=== PATIENT | female | born 2000 | race Caucasian/White ===

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

== ENCOUNTER 2023-09-24 16:04 | Inpatient (IN) ==
[2023-09-24] MEDS ORDERED: OXYTOCIN 30 UNITS/500 ML BAG IV PRN ×2 (17:01→17:03)
[2023-09-24] MEDS ORDERED: LIDOCAINE 1% LOCAL 20 ML VIAL INFIL PRN (17:01)
--- NOTE | 2023-09-24 17:07 | History & Physical Report ---
Date of Service September 24, 2023 Assessment & Plan (1) : Plan: Admit in labor History of Present Illness Chief Complaint: onset of labor at 40 weeks Primary Care Provider: Berhane Chatman DO 23 F P0010 at 40 weeks with onset of labor this AM and now getting stronger. GBS is negative. Allergies Allergy/AdvReac Type Severity Reaction Status Date / Time No Known Allergies Allergy Verified 09/24/23 16:42 Home Medications Medication Instructions Recorded Confirmed Type No Known Home Medications 07/20/20 07/20/20 History Patient History Social History Smoking Status: Current every day smoker Tobacco Type: Cigarettes Second Hand Exposure: Yes; Do You Dip or Chew Tobacco: No; Tobacco Cessation Education Requested by Patient: No Hx Alcohol Use: No Hx Substance Use: No Preferred Language: Irish Communication Ability: Effective Vp Packaging Required: No Beliefs That Will Affect Care: None marital status: Single Current Living Situation: Significant Other Other Information That Helps Us Care for You: No Feels Safe at Home: Yes Safety Concerns: Feels Safe At This Time Assistive Devices: None 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 Review of Systems All systems reviewed & are unremarkable except as noted in HPI & below Physical Exam Constitutional: WD/WN, vitals as above Eyes: PERRL, conjunctivae normal, anicteric sclerae Respiratory: normal respiratory effort, lungs clear to auscultation Cardiovascular: RRR, no murmur, no edema Gastrointestinal (Abdomen): Inspection/Auscultation: abdomen normal to inspection Musculoskeletal: Extremities: extremities normal to inspection Skin: no rashes, warm and dry Neurologic: patellar DTR's 2+ bilat, sensation intact Psychiatric: A+Ox3, euthymic affect Genitourinary: no vaginal lesions, no adnexal mass OB Exam Abdomen: + fundal height and + vertex Manual OB Exam: + cervical dilation 3 cm, + cervical effacement 80% and + station -2 OB Exam Monitor Tracing: + external FHT monitor used, + external uterine monitor used, + category I and + normal FHT variability soft, mid-position Results & Data Vital Signs (Past 12 Hours) Vital Signs Temp Pulse Resp BP 09/24/23 16:15 116 H 124/72 09/24/23 16:15 37.1 C 20 Code Status & VTE Plan VTE Prophylaxis Plan VTE Prophylaxis will be ordered: No Monitoring External Monitor Cat 1
--- NOTE | 2023-09-24 17:13 | Anesthesiology Consultation ---
Date of Service September 24, 2023 Assessment & Plan Chart Review Chart Review: Patient NOT seen in Pre Admission Testing and entry level machine operator initiated Consults Requested none History Height/Weight Height: 5 ft Weight: 80.3 kg Allergies Allergy/AdvReac Type Severity Reaction Status Date / Time No Known Allergies Allergy Verified 09/24/23 16:42 Medications Home Medications Medication Instructions Recorded Confirmed Last Taken No Known Home Medications 07/20/20 07/20/20 Unknown Social History Smoking Status: Current every day smoker Do You Dip or Chew Tobacco: No Hx Alcohol Use: No Hx Substance Use: No Review of Systems ROS Unobtainable: All systems reviewed & are unremarkable except as noted in HPI & below Physical Exam Vital Signs Last Vital Signs Temp 37.1 C 09/24/23 16:15 Pulse 116 H 09/24/23 16:15 Resp 20 09/24/23 16:15 BP 124/72 09/24/23 16:15
[2023-09-24] MEDS ORDERED: fentaNYL citrate PF 100 MCG/2 ML VIAL EPI PRN (17:15)
[2023-09-24] MEDS ORDERED: ROPIVACAINE 0.5% PF 5 MG/ML 20 ML VIAL EPI PRN (17:15)
[2023-09-24] MEDS ORDERED: fentANYL 2 MCG/ML BUPIVacaine 0.125%-NSS 100ML BAG EPI PRN (17:15)
[2023-09-24] MEDS ORDERED: diphenhydrAMINE 50 MG/ML VIAL IV PRN (17:15)
[2023-09-24] MEDS ORDERED: NALOXONE HCL 0.4 MG/1 ML VIAL/CARP IV PRN (17:15)
[2023-09-24] MEDS ORDERED: NALBUPHINE HCL INJ 10 MG/ML AMP IV PRN (17:15)
[2023-09-24] MEDS ORDERED: LIDOCAINE 2%/EPINEPHRINE 1:200,000 20 ML PF EPI STA (17:15)
[2023-09-24] MEDS ORDERED: ePHEDrine sulfate 50 MG/ML AMP IV PRN (17:15)
[2023-09-24] MEDS ORDERED: LIDOCAINE 2% MPF LOCAL 5 ML VIAL EPI PRN (17:15)
[2023-09-24] MEDS ORDERED: BUPIVACAINE 0.25% PF 30 ML VIAL EPI PRN (17:15)
[2023-09-24] MEDS ORDERED: NALOXONE HCL 1 MG in SODIUM CHLORIDE 0.9% 1,000 ML IV PRN (17:15)
[2023-09-24] MEDS ORDERED: SODIUM CHLORIDE 0.9% PF INJ 10 ML VIAL EPI PRN (17:15)
[2023-09-24] MEDS ORDERED: fentaNYL citrate PF 100 MCG/2 ML VIAL EPI STA (17:15)
[2023-09-24] MEDS ORDERED: BUPIVACAINE 0.25% PF 30 ML VIAL EPI STA (17:15)
[2023-09-24] MEDS ORDERED: SODIUM CHLORIDE 0.9% PF INJ 10 ML VIAL EPI STA (17:15)
[2023-09-24] MEDS: LACTATED RINGER'S 1,000 ML IV PRN ×2 (17:44→20:30)
[2023-09-24 18:05] LABS: Hematocrit (blood only) 38.2 % (37.0-47.0); Mean Corpuscular Hemoglobin 29.7 pg (25.0-34.0); Mean Corpuscular Volume 87.2 fL (80.0-100.0); Mean Platelet Volume 10.2 fL (9.4-12.4); Platelet Count 269 K/uL (130-400); RDW Coefficient of Variation 14.3 % (11.5-14.5); RDW Standard Deviation 46.4 fL (36.4-46.3); Red Blood Count 4.38 M/uL (4.20-5.40); White Blood Count 12.32 K/ul (4.8-10.8)
[2023-09-24] MEDS ORDERED: SODIUM CHLORIDE 0.9% PF INJ 10 ML VIAL ONE (19:03)
[2023-09-24] MEDS ORDERED: fentANYL 2 MCG/ML BUPIVacaine 0.125%-NSS 100ML BAG ONE (19:03)
[2023-09-24] MEDS ORDERED: LIDOCAINE 2%/EPINEPHRINE 1:200,000 20 ML PF ONE (19:03)
[2023-09-24] MEDS ORDERED: BUPIVACAINE 0.25% PF 30 ML VIAL ONE (19:03)
[2023-09-24] MEDS ORDERED: ePHEDrine sulfate 50 MG/ML AMP ONE (19:03)
[2023-09-24] MEDS ORDERED: fentaNYL citrate PF 100 MCG/2 ML VIAL ONE (19:03)
--- NOTE | 2023-09-24 20:27 | Labor Progress Brief Note ---
Date of Service September 24, 2023 Assessment & Plan Admission and Anticipated Discharge Date Admission Date: September 24, 2023 Physical Exam Genitourinary: Manual OB Exam: + cervical dilation 5 cm, + cervical effacement 100%, + station -2 and + amniotic fluid (AROM with Amni-hook clear fluid) clear OB Exam Monitor Tracing: + external FHT monitor used, + external uterine monitor used, + category I and + normal FHT variability Results & Data Vital Signs (Past 12 Hours) Vital Signs Temp Pulse Resp BP Pulse Ox 09/24/23 19:10 37.0 C 18 09/24/23 20:23 100 H 97 09/24/23 20:24 104 H 126/75 09/24/23 20:22 105 H 122/66 09/24/23 20:20 101 H 129/62 09/24/23 20:18 97 09/24/23 20:18 101 H 09/24/23 20:18 100 H 132/61 09/24/23 20:16 179 H 108/59 L 09/24/23 20:14 94 H 141/60 H 09/24/23 20:13 92 H 97 09/24/23 20:12 106 H 131/73 09/24/23 20:10 96 H 121/65 09/24/23 20:08 87 119/59 L 98 09/24/23 20:06 92 H 154/63 H 09/24/23 20:04 90 142/71 H 09/24/23 20:03 86 97 09/24/23 19:58 105 H 99 09/24/23 19:53 96 H 99 09/24/23 19:48 90 96 09/24/23 19:10 18 09/24/23 19:10 37.0 C 18 09/24/23 19:07 88 129/71 09/24/23 18:49 91 H 121/62 09/24/23 18:45 18 09/24/23 18:45 18 09/24/23 18:30 18 09/24/23 18:30 18 09/24/23 17:47 18 09/24/23 17:47 18 09/24/23 17:48 106 H 115/70 09/24/23 16:15 116 H 124/72 09/24/23 16:15 37.1 C 20
--- NOTE | 2023-09-25 00:55 | Labor Progress Brief Note ---
Date of Service September 25, 2023 Assessment & Plan Admission and Anticipated Discharge Date Admission Date: September 24, 2023 Physical Exam Genitourinary: Manual OB Exam: + cervical dilation 10 cm, + cervical effacement 100%, + station + 2 and + amniotic fluid clear OB Exam Monitor Tracing: + external FHT monitor used, + external uterine monitor used, + category I and + normal FHT variability Results & Data Vital Signs (Past 12 Hours) Vital Signs Temp Pulse Resp BP Pulse Ox 09/24/23 19:10 37.0 C 18 09/25/23 00:52 84 124/60 09/25/23 00:48 88 L 09/25/23 00:48 130 H 09/25/23 00:48 89 86 L 09/25/23 00:43 97 H 97 09/25/23 00:38 89 98 09/25/23 00:36 80 143/72 H 09/25/23 00:33 72 95 09/25/23 00:28 79 95 09/25/23 00:23 78 95 09/25/23 00:21 78 119/58 L 09/25/23 00:15 16 09/25/23 00:15 16 09/25/23 00:18 77 94 09/25/23 00:13 79 94 09/25/23 00:08 83 95 09/25/23 00:06 83 121/55 L 09/25/23 00:03 82 94 09/24/23 23:58 81 94 09/24/23 23:53 82 94 09/24/23 23:51 83 128/62 09/24/23 23:48 83 94 09/24/23 23:43 78 95 09/24/23 23:38 76 96 09/24/23 23:37 82 121/57 L 09/24/23 23:33 79 96 09/24/23 23:28 87 96 09/24/23 23:23 83 95 09/24/23 23:21 82 116/60 09/24/23 23:15 16 09/24/23 23:15 16 09/24/23 23:18 81 95 09/24/23 23:13 83 96 09/24/23 23:08 78 95 09/24/23 23:06 73 114/64 09/24/23 23:03 76 96 09/24/23 22:58 75 96 09/24/23 22:53 76 96 09/24/23 22:51 75 118/63 09/24/23 22:48 84 97 09/24/23 22:30 37.1 C 09/24/23 22:43 79 97 09/24/23 22:15 18 09/24/23 22:15 18 09/24/23 22:38 85 97 09/24/23 22:37 78 109/62 09/24/23 22:33 86 97 09/24/23 22:28 84 97 09/24/23 22:23 96 H 97 09/24/23 22:22 86 109/69 09/24/23 22:18 87 95 09/24/23 22:13 87 95 09/24/23 22:08 84 95 09/24/23 22:06 92 H 85/50 L 09/24/23 22:03 99 H 97 09/24/23 21:58 85 95 09/24/23 21:44 18 09/24/23 21:44 18 09/24/23 21:53 89 95 09/24/23 21:51 80 103/56 L 09/24/23 21:48 91 H 98 09/24/23 21:43 98 H 96 09/24/23 21:38 79 95 09/24/23 21:36 79 113/60 09/24/23 21:33 95 09/24/23 21:33 82 09/24/23 21:33 79 94 09/24/23 21:28 82 95 09/24/23 21:23 88 95 09/24/23 21:22 83 115/63 94 09/24/23 21:18 80 96 09/24/23 21:15 18 09/24/23 21:15 18 09/24/23 21:00 18 09/24/23 21:00 18 09/24/23 21:13 79 96 09/24/23 21:12 84 111/62 09/24/23 20:45 18 09/24/23 20:45 18 09/24/23 21:08 85 98 09/24/23 21:03 100 H 98 09/24/23 20:09 18 09/24/23 20:09 18 09/24/23 20:15 18 09/24/23 20:15 18 09/24/23 20:58 86 98 09/24/23 20:53 92 H 99 09/24/23 20:50 100 H 117/70 09/24/23 20:48 97 09/24/23 20:48 99 H 09/24/23 20:48 94 H 103/57 L 09/24/23 20:46 107 H 114/63 09/24/23 20:43 95 H 98 09/24/23 20:44 92 H 110/58 L 09/24/23 20:42 87 117/64 09/24/23 20:40 114 H 116/64 09/24/23 20:38 99 H 124/63 97 09/24/23 20:36 96 H 125/64 09/24/23 20:34 92 H 124/60 09/24/23 20:33 98 H 97 09/24/23 20:32 97 H 124/63 09/24/23 20:30 36.8 C 97 H 18 126/61 09/24/23 20:28 98 09/24/23 20:28 103 H 09/24/23 20:28 97 H 126/61 09/24/23 20:26 106 H 113/91 09/24/23 20:23 100 H 97 09/24/23 20:24 104 H 126/75 09/24/23 20:22 105 H 122/66 09/24/23 20:20 101 H 129/62 09/24/23 20:18 97 09/24/23 20:18 101 H 09/24/23 20:18 100 H 132/61 09/24/23 20:16 179 H 108/59 L 09/24/23 20:14 94 H 141/60 H 09/24/23 20:13 92 H 97 09/24/23 20:12 106 H 131/73 09/24/23 20:10 96 H 121/65 09/24/23 20:08 87 119/59 L 98 09/24/23 20:06 92 H 154/63 H 09/24/23 20:04 90 142/71 H 09/24/23 20:03 86 97 09/24/23 19:58 105 H 99 09/24/23 19:53 96 H 99 09/24/23 19:48 90 96 09/24/23 19:10 18 09/24/23 19:10 37.0 C 18 09/24/23 19:07 88 129/71 09/24/23 18:49 91 H 121/62 09/24/23 18:45 18 09/24/23 18:45 18 09/24/23 18:30 18 09/24/23 18:30 18 09/24/23 17:47 18 09/24/23 17:47 18 09/24/23 17:48 106 H 115/70 09/24/23 16:15 116 H 124/72 09/24/23 16:15 37.1 C 20
--- NOTE | 2023-09-25 01:19 | Delivery Summary ---
Vaginal Delivery Summary Date of Service September 25, 2023 Vaginal Delivery Summary Live female SURJIT over intact perineum with delayed cord clamping and Apgars 8/9 weight pending. Spontaneous delivery of intact placenta. No tears. EBL 100 ml. Final sponge and instrument count are correct. Mom and baby stable.
[2023-09-25] MEDS ORDERED: ACETAMINOPHEN 325 MG TAB PO PRN (02:00)
[2023-09-25] MEDS ORDERED: DIPHTHERIA/TETANUS/PERTUSSIS Vaccine (Tdap, Age 7+yrs) 0.5mL SYR/VL IM ONE (02:00)
[2023-09-25] MEDS ORDERED: IBUPROFEN 600 MG TAB PO PRN (02:00)
[2023-09-25] MEDS ORDERED: HYDROCORTISONE ACETATE 25 MG SUPP PR PRN (02:00)
[2023-09-25] MEDS ORDERED: OXYTOCIN 30 UNITS/500 ML BAG IV PRN (02:00)
[2023-09-25] MEDS ORDERED: BENZOCAINE 20% SPRY 85 APPLN/85 GM CAN EXT PRN (02:00)
--- NOTE | 2023-09-25 08:00 | Anesthesia Procedure Note ---
Date of Service September 25, 2023 Anesthesia Post Epidural Note Vital Signs Vital Signs: Temp Pulse Resp BP Pulse Ox O2 Del Method 97.9 F 92 H 18 100/62 97 Room Air 09/25/23 03:30 09/25/23 03:30 09/25/23 03:30 09/25/23 03:30 09/25/23 03:30 09/25/23 03:30 Notes Mental Status: alert / awake / arousable and participated in evaluation Nausea / Vomiting: adequately controlled Pain: adequately controlled Airway Patency, RR, SpO2: stable & adequate BP & HR: stable & adequate Hydration State: stable & adequate Neuraxial Anesthesia: was administered and sensory block is resolving Anesthetic Complications: no major complications apparent and Pt Satisfied with anesthetic care Epidural: Removed without complications and With tip intact
[2023-09-25] MEDS: DOCUSATE SODIUM 100 MG CAP PO SCH ×2 (08:42→20:23)
[2023-09-25] MEDS: FERROUS SULFATE 325 MG TAB PO SCH (08:42)
[2023-09-25] MEDS: PRENATAL VITAMIN 1 TAB PO SCH (08:42)
[2023-09-26 06:56] LABS: Hematocrit (blood only) 35.7 % (37.0-47.0); Hemoglobin 11.6 g/dl (12.0-16.0); Mean Corpuscular Hemoglobin 29.1 pg (25.0-34.0); Mean Corpuscular Hgb Conc 32.5 g/dL (32.0-36.0); Mean Corpuscular Volume 89.5 fL (80.0-100.0); Mean Platelet Volume 10.3 fL (9.4-12.4); Platelet Count 211 K/uL (130-400); RDW Coefficient of Variation 14.6 % (11.5-14.5); RDW Standard Deviation 48.3 fL (36.4-46.3); Red Blood Count 3.99 M/uL (4.20-5.40); White Blood Count 9.86 K/ul (4.8-10.8)
[2023-09-26] MEDS: FERROUS SULFATE 325 MG TAB PO SCH (08:30)
[2023-09-26] MEDS: DOCUSATE SODIUM 100 MG CAP PO SCH (08:30)
[2023-09-26] MEDS: PRENATAL VITAMIN 1 TAB PO SCH (08:30)
--- NOTE | 2023-09-26 10:03 | Obstetrical Progress Note ---
Date of Service September 26, 2023 Subjective Ambulation: ambulating normally Voiding: no voiding problems Passing Gas:: Yes Diet Tolerance:: regular diet Lochia:: Small Feeding Type:: bottle feeding Current Pain Level(1-10): 0 doing well plans to go home today Physical Exam Constitutional WD/WN, vitals as above Gastrointestinal (Abdomen) Inspection/Auscultation: abdomen normal to inspection abdomen soft and non-tender fundus firm below U Musculoskeletal Extremities: extremities normal to inspection Skin no rashes, warm and dry Neurologic patellar DTR's 2+ bilat, sensation intact Psychiatric A+Ox3, euthymic affect Results & Data Vital Signs (Past 12 Hours) Vital Signs Temp Pulse Resp BP Pulse Ox O2 Del Method 09/26/23 08:00 36.6 C 80 18 117/71 96 Room Air 09/25/23 23:00 36.6 C 84 18 106/70 98 Room Air Laboratory Results 09/24/23 09/26/23 17:24 06:09 WBC 12.32 H 9.86 RBC 4.38 3.99 L Hgb 13.0 11.6 L Hct 38.2 35.7 L MCV 87.2 89.5 MCH 29.7 29.1 MCHC 34.0 32.5 RDW Std Deviation 46.4 H 48.3 H RDW Coeff of Guerita 14.3 14.6 H Plt Count 269 211 MPV 10.2 10.3
[2023-09-26] MEDS ORDERED: bisacodyL 5 MG TABEC PO SCH (20:00)
[2023-09-27] MEDS ORDERED: bisacodyL 10 MG SUPP PR PRN
== END 2023-09-26 10:50 | disposition home or self-care (01) | DRG 807 ==
LOC: OPB 16:04 → 4S1 16:06 → 4E2 09-25 05:11

== ENCOUNTER 2025-08-12 17:12 | Inpatient (IN) ==
[2025-08-12] MEDS ORDERED: LIDOCAINE 1% LOCAL 20 ML VIAL INFIL PRN (20:06)
[2025-08-12] MEDS ORDERED: OXYTOCIN 30 UNITS/NSS 30 UNITS/500 ML BAG IV PRN (20:06)
[2025-08-12 20:36] LABS: Hematocrit (blood only) 36.5 % (37.0-47.0); Hemoglobin 11.9 g/dl (12.0-16.0); Mean Corpuscular Hemoglobin 27.7 pg (25.0-34.0); Mean Corpuscular Volume 84.9 fL (80.0-100.0); Platelet Count 277 K/uL (130-400); RDW Standard Deviation 41.6 fL (36.4-46.3); Red Blood Count 4.30 M/uL (4.20-5.40); White Blood Count 13.83 K/ul (4.8-10.8)
[2025-08-12] MEDS: LACTATED RINGER'S 1,000 ML IV PRN (21:29)
--- NOTE | 2025-08-12 21:37 | History & Physical Report ---
Date of Service August 12, 2025 Assessment & Plan Admission and Anticipated Discharge Date Admission Date: August 12, 2025 History of Present Illness Chief Complaint: induction of labor Primary Care Provider: NO PCP 24 F [id number] at 39.4 weeks admitted for elective IOL. GBS is negative. course has been uncomplicated. Allergies Allergy/AdvReac Type Severity Reaction Status Date / Time No Known Allergies Allergy Verified 08/12/25 19:45 Patient History Medical History Anxiety Depression History of COVID-11 Sep 2023 Surgical History [place] teeth extracted Family History Grandfather (Paternal) Diabetes Social History Smoking Status: Current every day smoker Tobacco Type: Cigarettes Cigarettes Per Day: 1ppd; Second Hand Exposure: No; Do You Dip or Chew Tobacco: No; Hx Alcohol Use: No Hx Substance Use: No Preferred Language: Slovak Communication Ability: Effective Medical Claims Examiner Required: No Beliefs That Will Affect Care: None marital status: Single Current Living Situation: Significant Other Current Living Situation Comment: house with FOB and daughter Other Information That Helps Us Care for You: No Feels Safe at Home: Yes Safety Concerns: Feels Safe At This Time Assistive Devices: None 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 Review of Systems All systems reviewed & are unremarkable except as noted in HPI & below Physical Exam Constitutional: WD/WN, vitals as above Eyes: PERRL, conjunctivae normal, anicteric sclerae Respiratory: normal respiratory effort Cardiovascular: Rate/Rhythm: regular rate and regular rhythm Gastrointestinal (Abdomen): Inspection/Auscultation: abdomen normal to inspection Musculoskeletal: Extremities: extremities normal to inspection Skin: no rashes, warm and dry Neurologic: patellar DTR's 2+ bilat, sensation intact Psychiatric: A+Ox3, euthymic affect Genitourinary: no vaginal lesions, no adnexal mass Manual OB Exam: + cervical dilation 1 cm, + cervical effacement 50% and + station high OB Exam Monitor Tracing: + external FHT monitor used, + external uterine monitor used, + category I and + normal FHT variability cervix is soft anterior. EFW 7-8 lbs. Will start Oxytocin. Epidural when needed for pain control. Results & Data Vital Signs (Past 12 Hours) Vital Signs Temp Pulse Resp BP O2 Del Method 08/12/25 19:45 36.5 C 18 Room Air 08/12/25 19:43 36.5 C 93 H 18 109/67 Laboratory Results 08/12/25 20:20 WBC 13.83 H RBC 4.30 Hgb 11.9 L Hct 36.5 L MCV 84.9 MCH 27.7 MCHC 32.6 RDW Std Deviation 41.6 RDW Coeff of Guerita 13.6 Plt Count 277 MPV 10.0 Treponema pallidum Ab Negative Blood Type B Positive Antibody Screen NEGATIVE Monitoring External Monitor Cat 1
[2025-08-12] MEDS: OXYTOCIN 30 UNITS/NSS 30 UNITS/500 ML BAG IV PRN (21:45)
[2025-08-13] MEDS ORDERED: NALOXONE HCL 0.4 MG/1 ML VIAL/CARP IV PRN ×2 (00:55→12:38)
[2025-08-13] MEDS ORDERED: NALBUPHINE HCL INJ 10 MG/ML AMP IV PRN ×2 (00:55→12:38)
[2025-08-13] MEDS ORDERED: SODIUM CHLORIDE 0.9% PF INJ 10 ML VIAL EPI PRN (00:55)
[2025-08-13] MEDS ORDERED: diphenhydrAMINE 50 MG/ML VIAL IV PRN ×2 (00:55→12:38)
[2025-08-13] MEDS ORDERED: BUPIVACAINE 0.25% PF 30 ML VIAL EPI PRN (00:55)
[2025-08-13] MEDS ORDERED: ROPIVACAINE 0.5% PF 5 MG/ML 20 ML VIAL EPI PRN (00:55)
[2025-08-13] MEDS ORDERED: ONDANSETRON INJ 2 MG/ML 2 ML VIAL IV PRN (00:55)
[2025-08-13] MEDS ORDERED: NALOXONE HCL 1 MG in SODIUM CHLORIDE 0.9% 1,000 ML IV PRN ×2 (00:55→12:38)
[2025-08-13] MEDS ORDERED: LIDOCAINE 2% MPF LOCAL 5 ML VIAL EPI PRN (00:55)
--- NOTE | 2025-08-13 00:57 | Anesthesiology Consultation ---
Date of Service August 13, 2025 Assessment & Plan (1) Encounter for pre-operative examination: Chart Review Chart Review: Patient NOT seen in Pre Admission Testing and Acceptable Risk for Labor Epidural Consults Requested none History Height/Weight Height: 5 ft Weight: 82.1 kg Allergies Allergy/AdvReac Type Severity Reaction Status Date / Time No Known Allergies Allergy Verified 08/12/25 19:45 Medications Active Medications Generic Name Dose Route Start Last Admin Trade Name Freq PRN Reason Stop Dose Admin Lactated Ringer's 1,000 mls @ 125 mls/hr 08/12/25 20:06 08/13/25 01:15 Lr IV 08/14/25 20:05 999 mls/hr .Q8H PRN Administration L&D Protocol Protocol Oxytocin 30 units in 500 mls @ 5 mls/hr 08/12/25 21:33 08/12/25 23:00 Pitocin 30 Units/Nss IV 08/14/25 21:32 0.3 units/hr .Q24H PRN 5 mls/hr Labor Induction/Augmentation Titration Protocol 0.3 UNITS/HR Past Medical History Medical History Anxiety Depression History of COVID-11 Sep 2023 Exercise / Class Metabolic Activity II 4-5 Yardwork/Stairs/Walk up hill Past Family History Family History Grandfather (Paternal) Diabetes Past Surgical History Surgical History [place] teeth extracted Social History Smoking Status: Current every day smoker Smoking cigarettes per day: 1ppd Do You Dip or Chew Tobacco: No Hx Alcohol Use: No Hx Substance Use: No substance use type: does not use Physical Exam Vital Signs Last Vital Signs Temp 36.9 C 08/12/25 23:00 Pulse 73 08/13/25 01:23 Resp 18 08/13/25 00:30 BP 102/53 L 08/13/25 01:23 Pulse Ox 98 08/13/25 01:21 O2 Del Method Room Air 08/12/25 19:45 Testing Laboratory Results 08/12/25 20:20 Blood Type B Positive 08/12/25 20:20 Antibody Screen NEGATIVE 08/12/25 20:20
[2025-08-13] MEDS: BUPIVACAINE 0.25% PF 30 ML VIAL ONE (01:25)
[2025-08-13] MEDS: LIDOCAINE 2%/EPINEPHRINE 1:200,000 20 ML PF ONE (01:26)
[2025-08-13] MEDS: fentANYL 2 MCG/ML BUPIVacaine 0.125%-NSS 100ML BAG ONE (01:36)
[2025-08-13] MEDS: SODIUM CHLORIDE 0.9% PF INJ 10 ML VIAL ONE (02:02)
[2025-08-13] MEDS: BUPIVACAINE 0.25% PF 30 ML VIAL EPI STA (02:02)
[2025-08-13] MEDS: LIDOCAINE 2%/EPINEPHRINE 1:200,000 20 ML PF EPI STA (02:03)
[2025-08-13] MEDS: SODIUM CHLORIDE 0.9% PF INJ 10 ML VIAL EPI STA (02:03)
[2025-08-13] MEDS: fentANYL 2 MCG/ML BUPIVacaine 0.125%-NSS 100ML BAG EPI PRN (10:52)
[2025-08-13] MEDS ORDERED: ceFAZolin 330 MG/ML 1 GM VIAL ONE (12:30)
[2025-08-13] MEDS ORDERED: PROPOFOL IV EMULSION 10 MG/ML 20 ML VIAL IV ONE (12:30)
[2025-08-13] MEDS ORDERED: SUCCINYLCHOLINE 100MG/5ML SYR IV ONE (12:30)
[2025-08-13] MEDS ORDERED: LIDOCAINE 2%/EPINEPHRINE 1:200,000 20 ML PF ONE (12:32)
[2025-08-13] MEDS ORDERED: ONDANSETRON INJ 2 MG/ML 2 ML VIAL ONE (12:33)
[2025-08-13] MEDS ORDERED: MoRPHine SULFATE PF 1 MG/ML 10 ML AMP/VIAL ONE (12:33)
[2025-08-13] MEDS ORDERED: DROPERIDOL 5 MG/2 ML VIAL IV PRN (12:38)
[2025-08-13] MEDS ORDERED: LACTATED RINGER'S 500 ML IV PRN (12:38)
[2025-08-13] MEDS ORDERED: NALOXONE HCL 0.08 MG in SYRINGE 1.8 ML IV PRN (12:38)
[2025-08-13] MEDS ORDERED: MoRPHine SULFATE PF 1 MG/ML 10 ML AMP/VIAL EPI ONE (12:38)
[2025-08-13] MEDS ORDERED: HYDROmorphone INJ 0.5 MG/0.5 ML SYR IV PRN (12:38)
[2025-08-13] MEDS ORDERED: SODIUM CHLORIDE 0.9% 1,000 ML IV SCH (12:45)
[2025-08-13] MEDS ORDERED: DC INTRASPINAL MORPHINE SCH (12:45)
[2025-08-13] MEDS ORDERED: NO NARCOTICS OR SEDATIVES SCH (12:45)
[2025-08-13] MEDS ORDERED: BENZOCAINE 20% SPRY 85 APPLN/85 GM CAN EXT PRN (13:14)
[2025-08-13] MEDS ORDERED: MAGNESIUM HYDROXIDE SUSP 30 ML UDC PO PRN (13:14)
[2025-08-13] MEDS ORDERED: HYDROCORTISONE ACETATE 25 MG SUPP PR PRN (13:14)
[2025-08-13] MEDS ORDERED: SENNA 8.6 MG TAB PO PRN (13:14)
[2025-08-13] MEDS ORDERED: DIPHTHER/TETAN/PERTUS Vaccine (Tdap, Adol/Adult) 0.5mL IM ONE (13:14)
[2025-08-13] MEDS ORDERED: CALCIUM CARBONATE 500 MG CHEWABLE TAB PO PRN (13:14)
[2025-08-13] MEDS ORDERED: LACTATED RINGER'S 1,000 ML IV SCH (13:15)
[2025-08-13 13:21] LABS: Base Excess Cord Arterial Bld -6.7 mEq/L (-9-1.8); Base Excess Cord Venous Blood -5.6 mEq/L (-7.7-1.9); CO2 Cord Arterial Blood 56 mmHg (39.1-73.5); Cord Venous Blood PO2 35 mmHg (14.1-43.3); HCO3 Cord Arterial Blood 22 mmol/L (19.7-28.5); O2 Saturation Cord Venous Bld 70.2 % (<68); Oxygen Sat Cord Arterial Blood < 60.0 % (<60); PO2 Cord Arterial Blood < 20 mmHg (4.1-31.7); pH Cord Arterial Blood 7.20 (7.1-7.38)
--- NOTE | 2025-08-13 13:25 | Operative Report ---
Post Operative Report Pre & Post Diagnosis Operation Date: 08/13/25 12:25 Pre-Op Diagnosis: Cord Prolapse; Bradycardia Post-Op Diagnosis: Same; delivery of a live male child at 1230 I identified the patient and participated in the time-out.: Yes Procedure Operation Date: 08/13/25 12:25 Actual Procedures p Section in LD(Bilateral) - Gaston Bar MD Surgeon Gaston Bar MD Isotope Technician Dr. Barnett Estimated Blood Loss 780 (QBL) Findings Consistent with Post-Op Diagnosis Nuchal cord x 2 Specimens Placenta Drains None Complications None Indications Prolapse umbilical cord bradycardia Description of Procedure Patient was brought to the OR on an emergency basis. Nurse had her hand in the vagina keeping the head out of the pelvis. Patient was placed on the operating room table. Compression stockings were applied. Lower abdomen was just splashed with Betadine. Draped in usual sterile fashion. General anesthesia was administered. Pfannenstiel incision was made carried down to the anterior fascia by sharp dissection. Fascia was incised transversely from the underlying muscle by blunt and sharp dissection. Recti muscles were in the midline. Peritoneum was carefully raised and entered. Lower uterine segment was exposed. An incision was made above the vesicouterine fold. The bladder was advanced out of the lower uterine segment. A small incision was made in the lower uterine segment. Incision was extended laterally with a 2 fingers. Cord was noted at this time in front of the head. Operators hand was placed in uterine cavity with fundal pressure was delivered. After delivery of the head there was a nuchal cord x 2 that had to be reduced. Then the body and the was delivered without difficulty. was suctioned through the mouth and the nose. Cord was clamped and cut. Cord gases were sent. Then cord blood was taken. Placenta was removed manually. Uterus was brought out through the abdominal incision. Uterine cavity was cleansed with a clean sponge. The angles of the lower uterine defect were grasped with 4 ring forceps. Then a heavy-duty chromic was used to approximate the muscular layer with continuous interlocking suture. Following this a heavy duty suture of Vicryl was placed in a horizontal fashion to approximate the fascial layer over the approximated muscular layer around 1 additional [id number] suture of Vicryl was placed on the patient's left side below the incision. Hemostasis was now good. Pelvis was cleansed of all blood clots and debris. Uterus was reinserted into the abdominal cavity. A continuous plain suture was used to reapproximate the edges of the bladder. Careful anatomical approximation the anterior abdominal wall was performed. Peritoneum was closed with continuous suture chromic catgut. Recti muscles approximate interrupted [id number] suture of chromic catgut. Vicryl sutures approximate the fascial edges with a continuous interlocking suture of heavy Vicryl. Subcu was then washed. Subcu was approximated with a running plain. The skin edges are approximated with staple clips. assistant project manager was necessary in this emergency procedure to provide adequate exposure and safe surgery. I attest to the content of the Intraoperative Record and any orders documented therein. assistant project manager was necessary to provide adequate exposure for safe surgery for this emergency procedure.
[2025-08-13] MEDS: OXYTOCIN 20 UNITS/LR 1,002 ML IV SCH (13:30)
[2025-08-13] MEDS: KETOROLAC 30 MG/ML VIAL IV SCH (14:13)
[2025-08-13] MEDS: ONDANSETRON INJ 2 MG/ML 2 ML VIAL IV PRN (16:59)
--- NOTE | 2025-08-13 17:46 | Anesthesiology Progress Note ---
Date of Service August 13, 2025 Anesthesia Post Procedure Vital Signs Vital Signs: Temp Pulse Pulse Resp BP BP Pulse Ox 08/13/25 16:56 87 104/63 97 08/13/25 16:02 16 97 08/13/25 16:02 36.7 C 70 16 91/50 L 97 08/13/25 16:02 08/13/25 15:57 72 96 08/13/25 15:53 71 94 08/13/25 15:52 68 96 08/13/25 15:49 69 93/55 L 08/13/25 15:47 69 94 08/13/25 15:46 63 93 08/13/25 15:42 74 97 08/13/25 15:39 62 89/51 L 08/13/25 15:37 72 96 08/13/25 15:32 69 97 08/13/25 15:30 36.6 C 16 08/13/25 15:30 94 08/13/25 15:30 69 08/13/25 15:30 68 85/48 L 08/13/25 15:27 71 96 08/13/25 15:25 74 92 08/13/25 15:22 75 97 08/13/25 15:19 70 91/48 L 08/13/25 15:17 72 97 08/13/25 15:14 74 92 08/13/25 15:12 71 97 08/13/25 15:09 76 87/50 L 08/13/25 15:07 72 97 08/13/25 15:02 68 97 08/13/25 15:00 20 98 08/13/25 14:59 71 93/50 L 08/13/25 14:57 78 96 08/13/25 14:52 78 96 08/13/25 14:49 75 98/53 L 08/13/25 14:47 70 98 08/13/25 14:42 80 98 08/13/25 14:39 66 87/58 L 08/13/25 14:37 75 99 08/13/25 14:32 74 99 08/13/25 14:29 81 95/54 L 08/13/25 14:27 73 99 08/13/25 14:23 82 91/52 L 08/13/25 14:22 81 98 08/13/25 14:17 76 100 08/13/25 14:13 75 116/54 L 08/13/25 14:12 72 100 08/13/25 14:10 80 85/51 L 08/13/25 14:09 72 94 08/13/25 14:07 75 99 08/13/25 14:02 73 99 08/13/25 13:59 72 94/54 L 08/13/25 13:57 76 99 08/13/25 13:52 72 100 08/13/25 13:50 78 104/44 L 08/13/25 13:47 76 99 08/13/25 13:42 81 98 08/13/25 13:39 86 106/60 08/13/25 13:37 76 99 08/13/25 13:32 104 H 100 08/13/25 13:30 36.4 C L 16 08/13/25 13:29 88 112/58 L 08/13/25 13:27 88 98 08/13/25 12:16 63 98 08/13/25 12:12 72 103/56 L 08/13/25 12:11 71 95 08/13/25 12:06 72 97 08/13/25 12:01 77 97 08/13/25 12:00 69 118/54 L 08/13/25 11:56 74 98 08/13/25 11:51 69 96 08/13/25 11:48 72 94 08/13/25 11:46 72 94 08/13/25 11:43 72 94 08/13/25 11:42 67 120/60 08/13/25 11:41 73 95 08/13/25 11:36 68 94 08/13/25 11:31 74 96 08/13/25 11:28 77 116/62 08/13/25 11:26 76 96 08/13/25 11:21 78 97 08/13/25 11:16 73 96 08/13/25 11:12 77 108/58 L 08/13/25 11:11 76 97 08/13/25 11:06 80 96 08/13/25 11:01 81 96 08/13/25 10:58 76 108/57 L 08/13/25 10:56 77 97 08/13/25 10:51 72 96 08/13/25 10:46 69 95 08/13/25 10:43 64 110/57 L 08/13/25 10:41 75 97 08/13/25 10:38 67 116/64 08/13/25 10:36 69 96 08/13/25 10:32 69 87/55 L 08/13/25 10:31 72 97 08/13/25 10:28 74 81/48 L 08/13/25 10:26 76 96 08/13/25 10:21 71 97 08/13/25 10:16 70 96 08/13/25 10:14 71 108/60 08/13/25 10:11 74 96 08/13/25 10:06 74 96 08/13/25 10:01 78 96 08/13/25 09:56 77 97 08/13/25 09:51 81 96 08/13/25 09:46 79 96 08/13/25 09:43 116/74 08/13/25 09:41 71 97 08/13/25 09:36 69 100 08/13/25 09:31 64 100 08/13/25 09:28 65 146/65 H 08/13/25 09:26 64 96 08/13/25 09:21 70 97 08/13/25 09:16 74 96 08/13/25 09:11 74 96 08/13/25 09:06 77 97 08/13/25 09:01 72 95 08/13/25 08:58 68 113/56 L 08/13/25 08:56 79 96 08/13/25 08:53 73 94 08/13/25 08:51 68 95 08/13/25 08:46 68 95 08/13/25 08:43 69 94 08/13/25 08:42 70 103/58 L 08/13/25 08:41 76 96 08/13/25 08:36 74 96 08/13/25 08:31 77 97 08/13/25 08:28 76 105/52 L 08/13/25 08:26 74 96 08/13/25 08:21 78 96 08/13/25 08:16 70 97 08/13/25 08:13 72 113/56 L 08/13/25 08:11 70 96 08/13/25 08:06 71 96 08/13/25 08:01 73 97 08/13/25 07:58 81 128/74 08/13/25 07:56 73 97 08/13/25 07:51 74 97 08/13/25 07:46 66 97 08/13/25 07:44 77 116/54 L 08/13/25 07:41 69 96 08/13/25 07:36 71 96 08/13/25 07:31 73 97 08/13/25 07:28 73 99/51 L 08/13/25 07:26 74 96 08/13/25 07:21 71 96 08/13/25 07:16 75 96 08/13/25 07:13 73 100/58 L 08/13/25 07:11 76 97 08/13/25 07:08 36.8 C 14 08/13/25 07:06 87 96 08/13/25 07:01 94 08/13/25 07:01 75 08/13/25 07:01 77 94 08/13/25 06:57 80 129/58 L 08/13/25 06:56 78 96 08/13/25 06:55 75 94 08/13/25 06:51 88 96 08/13/25 06:50 82 94 08/13/25 06:46 81 97 08/13/25 06:43 78 108/53 L 08/13/25 06:41 73 97 08/13/25 06:40 84 92 08/13/25 06:36 76 97 08/13/25 06:31 77 96 08/13/25 06:30 16 08/13/25 06:30 16 08/13/25 06:28 75 106/61 08/13/25 06:26 76 94 08/13/25 06:24 76 94 08/13/25 06:21 75 94 08/13/25 06:18 75 94 08/13/25 06:16 76 95 08/13/25 06:13 73 94 08/13/25 06:12 78 97/52 L 08/13/25 06:11 75 95 08/13/25 06:07 74 94 08/13/25 06:06 79 95 08/13/25 06:01 74 96 08/13/25 06:00 77 16 94 08/13/25 05:58 76 92/53 L 08/13/25 05:56 77 94 08/13/25 05:54 72 94 08/13/25 05:51 73 96 08/13/25 05:46 91 H 93 08/13/25 05:43 75 94/52 L 08/13/25 05:41 77 94 08/13/25 05:36 75 94 08/13/25 05:35 78 94 08/13/25 05:31 80 94 08/13/25 05:30 16 08/13/25 05:30 16 08/13/25 05:28 76 97/51 L 94 08/13/25 05:26 77 95 08/13/25 05:21 72 94 08/13/25 05:17 74 94 08/13/25 05:16 71 94 08/13/25 05:14 76 103/55 L 08/13/25 05:11 73 95 08/13/25 05:08 73 94 08/13/25 05:06 75 95 08/13/25 05:01 73 94 08/13/25 04:58 74 104/55 L 08/13/25 04:56 71 95 08/13/25 04:52 74 94 08/13/25 04:51 77 95 08/13/25 04:46 72 95 08/13/25 04:43 67 95/54 L 08/13/25 04:41 69 96 08/13/25 04:36 68 97 08/13/25 04:31 73 97 08/13/25 04:30 18 08/13/25 04:30 36.9 C 18 08/13/25 04:28 76 96/54 L 08/13/25 04:26 72 93 08/13/25 04:23 69 94 08/13/25 04:21 85 97 08/13/25 04:16 77 97 08/13/25 04:11 63 98 08/13/25 04:06 73 97 08/13/25 04:01 67 95 08/13/25 04:00 18 08/13/25 04:00 18 08/13/25 03:58 66 91/55 L 08/13/25 03:56 73 95 08/13/25 03:51 68 97 08/13/25 03:46 73 98 08/13/25 03:43 69 91/54 L 08/13/25 03:41 68 98 08/13/25 03:36 79 96 08/13/25 03:31 94 08/13/25 03:31 66 08/13/25 03:31 65 94 08/13/25 03:30 16 09/20/25 03:30 16 08/13/25 03:28 65 90/50 L 08/13/25 03:26 68 93 08/13/25 03:21 70 94 08/13/25 03:16 67 95 08/13/25 03:14 67 94 08/13/25 03:13 68 83/48 L 08/13/25 03:11 76 96 08/13/25 03:07 65 94 08/13/25 03:06 67 94 08/13/25 03:01 67 95 08/13/25 03:00 66 16 94 08/13/25 02:56 97 08/13/25 02:56 76 08/13/25 02:56 87 92/51 L 08/13/25 02:51 80 93 08/13/25 02:50 71 88/50 L 08/13/25 02:46 72 92 08/13/25 02:45 74 87/48 L 08/13/25 02:41 70 93 08/13/25 02:40 72 84/46 L 08/13/25 02:38 73 94 08/13/25 02:36 70 94 08/13/25 02:35 71 93/48 L 08/13/25 02:33 77 94 08/13/25 02:31 93 08/13/25 02:31 71 08/13/25 02:31 72 87/50 L 08/13/25 02:30 16 08/13/25 02:30 16 08/13/25 02:26 74 94 08/13/25 02:25 77 90/45 L 08/13/25 02:21 94 08/13/25 02:21 79 08/13/25 02:21 75 87/49 L 08/13/25 02:20 71 94 08/13/25 02:16 94 08/13/25 02:16 70 08/13/25 02:16 75 93/48 L 08/13/25 02:11 78 84/48 L 94 08/13/25 02:06 75 95 08/13/25 02:05 80 90/51 L 08/13/25 02:01 72 85/49 L 96 08/13/25 02:00 18 08/13/25 02:00 36.4 C L 18 08/13/25 01:56 84 96 08/13/25 01:55 77 98/50 L 08/13/25 01:51 74 96 08/13/25 01:50 68 86/48 L 08/13/25 01:46 95 08/13/25 01:46 72 08/13/25 01:46 80 92/49 L 08/13/25 01:45 18 08/13/25 01:45 18 08/13/25 01:41 75 97 08/13/25 01:39 80 105/59 L 08/13/25 01:37 74 100/57 L 08/13/25 01:36 75 96 08/13/25 01:35 81 104/57 L 08/13/25 01:33 75 103/56 L 08/13/25 01:31 80 97/52 L 96 08/13/25 01:29 77 100/57 L 08/13/25 01:27 79 93/51 L 08/13/25 01:26 76 96/51 L 97 08/13/25 01:25 75 89/52 L 08/13/25 01:23 73 102/53 L 08/13/25 01:21 75 98 08/13/25 01:19 64 110/67 08/13/25 01:17 76 113/68 08/13/25 01:16 73 98 08/13/25 01:11 72 97 08/13/25 01:06 75 96 08/13/25 01:02 64 118/67 08/13/25 01:01 78 100 08/13/25 00:30 18 08/13/25 00:30 18 08/13/25 00:00 94 H 18 108/66 08/12/25 23:30 18 08/12/25 23:30 18 08/12/25 23:00 18 08/12/25 23:00 36.9 C 18 08/12/25 22:59 96 H 101/62 08/12/25 21:46 84 116/62 08/12/25 19:45 36.5 C 18 08/12/25 19:43 36.5 C 93 H 18 109/67 Pulse Ox O2 Del Method O2 Del Method O2 Flow Rate 08/13/25 16:56 Room Air 08/13/25 16:02 08/13/25 16:02 Room Air 08/13/25 16:02 97 Room Air 0 08/13/25 15:57 08/13/25 15:53 08/13/25 15:52 08/13/25 15:49 08/13/25 15:47 08/13/25 15:46 08/13/25 15:42 08/13/25 15:39 08/13/25 15:37 08/13/25 15:32 08/13/25 15:30 08/13/25 15:30 08/13/25 15:30 08/13/25 15:30 08/13/25 15:27 08/13/25 15:25 08/13/25 15:22 08/13/25 15:19 08/13/25 15:17 08/13/25 15:14 08/13/25 15:12 08/13/25 15:09 08/13/25 15:07 08/13/25 15:02 08/13/25 15:00 08/13/25 14:59 08/13/25 14:57 08/13/25 14:52 08/13/25 14:49 08/13/25 14:47 08/13/25 14:42 08/13/25 14:39 08/13/25 14:37 08/13/25 14:32 08/13/25 14:29 08/13/25 14:27 08/13/25 14:23 08/13/25 14:22 08/13/25 14:17 08/13/25 14:13 08/13/25 14:12 08/13/25 14:10 08/13/25 14:09 08/13/25 14:07 08/13/25 14:02 08/13/25 13:59 08/13/25 13:57 08/13/25 13:52 08/13/25 13:50 08/13/25 13:47 08/13/25 13:42 08/13/25 13:39 08/13/25 13:37 08/13/25 13:32 08/13/25 13:30 08/13/25 13:29 08/13/25 13:27 08/13/25 12:16 08/13/25 12:12 08/13/25 12:11 08/13/25 12:06 08/13/25 12:01 08/13/25 12:00 08/13/25 11:56 08/13/25 11:51 08/13/25 11:48 08/13/25 11:46 08/13/25 11:43 08/13/25 11:42 08/13/25 11:41 08/13/25 11:36 08/13/25 11:31 08/13/25 11:28 08/13/25 11:26 08/13/25 11:21 08/13/25 11:16 08/13/25 11:12 08/13/25 11:11 08/13/25 11:06 08/13/25 11:01 08/13/25 10:58 08/13/25 10:56 08/13/25 10:51 08/13/25 10:46 08/13/25 10:43 08/13/25 10:41 08/13/25 10:38 08/13/25 10:36 08/13/25 10:32 08/13/25 10:31 08/13/25 10:28 08/13/25 10:26 08/13/25 10:21 08/13/25 10:16 08/13/25 10:14 08/13/25 10:11 08/13/25 10:06 08/13/25 10:01 08/13/25 09:56 08/13/25 09:51 08/13/25 09:46 08/13/25 09:43 08/13/25 09:41 08/13/25 09:36 08/13/25 09:31 08/13/25 09:28 08/13/25 09:26 08/13/25 09:21 08/13/25 09:16 08/13/25 09:11 08/13/25 09:06 08/13/25 09:01 08/13/25 08:58 08/13/25 08:56 08/13/25 08:53 08/13/25 08:51 08/13/25 08:46 08/13/25 08:43 08/13/25 08:42 08/13/25 08:41 08/13/25 08:36 08/13/25 08:31 08/13/25 08:28 08/13/25 08:26 08/13/25 08:21 08/13/25 08:16 08/13/25 08:13 08/13/25 08:11 08/13/25 08:06 08/13/25 08:01 08/13/25 07:58 08/13/25 07:56 08/13/25 07:51 08/13/25 07:46 08/13/25 07:44 08/13/25 07:41 08/13/25 07:36 08/13/25 07:31 08/13/25 07:28 08/13/25 07:26 08/13/25 07:21 08/13/25 07:16 08/13/25 07:13 08/13/25 07:11 08/13/25 07:08 08/13/25 07:06 08/13/25 07:01 08/13/25 07:01 08/13/25 07:01 08/13/25 06:57 08/13/25 06:56 08/13/25 06:55 08/13/25 06:51 08/13/25 06:50 08/13/25 06:46 08/13/25 06:43 08/13/25 06:41 08/13/25 06:40 08/13/25 06:36 08/13/25 06:31 08/13/25 06:30 08/13/25 06:30 08/13/25 06:28 08/13/25 06:26 08/13/25 06:24 08/13/25 06:21 08/13/25 06:18 08/13/25 06:16 08/13/25 06:13 08/13/25 06:12 08/13/25 06:11 08/13/25 06:07 08/13/25 06:06 08/13/25 06:01 08/13/25 06:00 08/13/25 05:58 08/13/25 05:56 08/13/25 05:54 08/13/25 05:51 08/13/25 05:46 08/13/25 05:43 08/13/25 05:41 08/13/25 05:36 08/13/25 05:35 08/13/25 05:31 08/13/25 05:30 08/13/25 05:30 08/13/25 05:28 08/13/25 05:26 08/13/25 05:21 08/13/25 05:17 08/13/25 05:16 08/13/25 05:14 08/13/25 05:11 08/13/25 05:08 08/13/25 05:06 08/13/25 05:01 08/13/25 04:58 08/13/25 04:56 08/13/25 04:52 08/13/25 04:51 08/13/25 04:46 08/13/25 04:43 08/13/25 04:41 08/13/25 04:36 08/13/25 04:31 08/13/25 04:30 08/13/25 04:30 08/13/25 04:28 08/13/25 04:26 08/13/25 04:23 08/13/25 04:21 08/13/25 04:16 08/13/25 04:11 08/13/25 04:06 08/13/25 04:01 08/13/25 04:00 08/13/25 04:00 08/13/25 03:58 08/13/25 03:56 08/13/25 03:51 08/13/25 03:46 08/13/25 03:43 08/13/25 03:41 08/13/25 03:36 08/13/25 03:31 08/13/25 03:31 08/13/25 03:31 08/13/25 03:30 08/13/25 03:30 08/13/25 03:28 08/13/25 03:26 08/13/25 03:21 08/13/25 03:16 08/13/25 03:14 08/13/25 03:13 08/13/25 03:11 08/13/25 03:07 08/13/25 03:06 08/13/25 03:01 08/13/25 03:00 08/13/25 02:56 08/13/25 02:56 08/13/25 02:56 08/13/25 02:51 08/13/25 02:50 08/13/25 02:46 08/13/25 02:45 08/13/25 02:41 08/13/25 02:40 08/13/25 02:38 08/13/25 02:36 08/13/25 02:35 08/13/25 02:33 08/13/25 02:31 08/13/25 02:31 08/13/25 02:31 08/13/25 02:30 08/13/25 02:30 08/13/25 02:26 08/13/25 02:25 08/13/25 02:21 08/13/25 02:21 08/13/25 02:21 08/13/25 02:20 08/13/25 02:16 08/13/25 02:16 08/13/25 02:16 08/13/25 02:11 08/13/25 02:06 08/13/25 02:05 08/13/25 02:01 08/13/25 02:00 08/13/25 02:00 08/13/25 01:56 08/13/25 01:55 08/13/25 01:51 08/13/25 01:50 08/13/25 01:46 08/13/25 01:46 08/13/25 01:46 08/13/25 01:45 08/13/25 01:45 08/13/25 01:41 08/13/25 01:39 08/13/25 01:37 08/13/25 01:36 08/13/25 01:35 08/13/25 01:33 08/13/25 01:31 08/13/25 01:29 08/13/25 01:27 08/13/25 01:26 08/13/25 01:25 08/13/25 01:23 08/13/25 01:21 08/13/25 01:19 08/13/25 01:17 08/13/25 01:16 08/13/25 01:11 08/13/25 01:06 08/13/25 01:02 08/13/25 01:01 08/13/25 00:30 08/13/25 00:30 08/13/25 00:00 08/12/25 23:30 08/12/25 23:30 08/12/25 23:00 08/12/25 23:00 08/12/25 22:59 08/12/25 21:46 08/12/25 19:45 Room Air 08/12/25 19:43 Notes Mental Status: alert / awake / arousable Patient Amnestic to Procedure: Yes Nausea / Vomiting: adequately controlled Pain: adequately controlled Airway Patency, RR, SpO2: stable & adequate BP & HR: stable & adequate Hydration State: stable & adequate Neuraxial Anesthesia: was administered and sensory block is resolving Anesthetic Complications: no major complications apparent Notes: stat section dt cord prolapse and bradycardia
[2025-08-13] MEDS: LACTATED RINGER'S 1,000 ML IV ONE (18:26)
[2025-08-13] MEDS: ACETAMINOPHEN 325 MG TAB PO SCH (20:38)
[2025-08-13] MEDS: SIMETHICONE 80 MG CHEW PO SCH (20:38)
[2025-08-13] MEDS: DOCUSATE SODIUM 100 MG CAP PO SCH (20:38)
[2025-08-14] MEDS ORDERED: diphenhydrAMINE Capsule 25 MG CAP PO PRN (06:38)
[2025-08-14] MEDS ORDERED: HYDROmorphone INJ 0.5 MG/0.5 ML SYR IV PRN (06:38)
[2025-08-14] MEDS ORDERED: PROMETHAZINE 12.5 MG/50.5 ML BAG IV PRN (06:38)
[2025-08-14] MEDS ORDERED: diphenhydrAMINE 50 MG/ML VIAL IV PRN (06:38)
[2025-08-14 06:46] LABS: Hematocrit (blood only) 25.3 % (37.0-47.0); Hemoglobin 8.4 g/dl (12.0-16.0); Immature Granulocytes # (auto) 0.04 K/uL (0.01-0.20); Immature Granulocytes % (auto) 0.4 %; Mean Corpuscular Hemoglobin 28.9 pg (25.0-34.0); Mean Corpuscular Volume 86.9 fL (80.0-100.0); Platelet Count 231 K/uL (130-400); RDW Standard Deviation 43.4 fL (36.4-46.3); Red Blood Count 2.91 M/uL (4.20-5.40); White Blood Count 11.07 K/ul (4.8-10.8)
[2025-08-14] MEDS: FERROUS SULFATE 325 MG TAB PO SCH (07:45)
[2025-08-14] MEDS: PRENATAL VITAMIN 1 TAB PO SCH (07:45)
--- NOTE | 2025-08-14 12:06 | Obstetrical Progress Note ---
Date of Service August 14, 2025 Assessment & Plan Admission and Anticipated Discharge Date Admission Date: August 12, 2025 Subjective abdomen soft and non tender bowel sounds normal passing gas bandage removed incision is clean and dry no calf tenderness ambulating well vaginal bleeding scant hgb 8.4 Results & Data Vital Signs (Past 12 Hours) Vital Signs Temp Pulse Resp BP Pulse Ox O2 Del Method 08/14/25 07:25 36.8 C 68 16 116/78 94 Room Air 08/14/25 05:15 16 92 08/14/25 04:15 17 95 08/14/25 03:15 18 94 08/14/25 03:09 36.6 C 72 18 95/61 L 99 08/14/25 01:30 16 96 08/14/25 00:30 18 99
--- NOTE | 2025-08-14 12:14 | History & Physical Report ---
Date of Service August 14, 2025 Assessment & Plan (1) Umbilical cord prolapse in labor and delivery: Plan: Emergency section under general anesthesia Admission and Anticipated Discharge Date Admission Date: August 12, 2025 History of Present Illness Chief Complaint: Intrauterine 39 weeks 5 days gestation Smoker Primary Care Provider: NO PCP Patient is a 24-year-old 3 para 1 history of 1 first trimester AB. First delivery was September 25, 2023 female 7 pounds 3 ounces went into spontaneous labor at 40 weeks gestation at about a 14-hour labor a 20-minute push delivered spontaneously. Patient has concerns about intrauterine demise. Had a grandmother that had to intrauterine demise's. Patient is also been a fairly heavy smoker since age 11. She was brought in for induction at 39 weeks 5 days gestation. Placed on IV Pitocin. Received epidural for pain control. At start of the induction and cervix was unfavorable. head was high. With the epidural for pain control we started increasing the Pitocin. Eventually we got a prolonged deceleration and had to stop the Pitocin and then restarted at half the original dose. She was getting good regular contractions she had good dilatation of the cervix. During pelvic exam membranes ruptured spontaneously. At that time the head was still high at a -2 to -3 station cervix was about 4 cm about 80% effaced and soft. After the membranes ruptured I did a careful exam and I could feel the umbilical cord in front of the head. At this time there was also a prolonged deceleration. Emergency was called. Nurse came in to hold the head out of the pelvis so as not to compress the cord. A stat section was performed under general anesthesia. At that time there was a nuchal cord x 2 along with a cord in the pelvis. Cpa Tax was present for resuscitation of the . Allergies Allergy/AdvReac Type Severity Reaction Status Date / Time No Known Allergies Allergy Verified 08/12/25 19:45 Past Med/Surg History Problem List (Updated 08/14/25 @ 12:13 by Gaston Bar MD) Umbilical cord prolapse in labor and delivery Loss of consciousness Retained placental fragment Encounter for pre-operative examination Suprapubic abdominal pain (Acute) Medical History Anxiety Depression History of COVID-11 Sep 2023 Surgical History [place] teeth extracted Family History Grandfather (Paternal) Diabetes Social History Smoking Status: Current every day smoker Tobacco Type: Cigarettes Cigarettes Per Day: 1ppd; Second Hand Exposure: No; Do You Dip or Chew Tobacco: No; Hx Alcohol Use: No Hx Substance Use: No Preferred Language: Turkmen Communication Ability: Effective Computed Tomography Technician Required: No Beliefs That Will Affect Care: None marital status: Single Current Living Situation: Significant Other Current Living Situation Comment: house with FOB and daughter Other Information That Helps Us Care for You: No Feels Safe at Home: Yes Safety Concerns: Feels Safe At This Time Assistive Devices: None Physical Exam Physical Exam: Patient is well-developed well-nourished 24-year-old white female alert oriented x 3 cooperative exhibiting some distress degree of distress. Heart had regular rhythm S1 and S2 were normal. Lungs are clear to auscultation percussion. Trachea was midline there was no cervical adenopathy. There is no CVA tenderness. No calf tenderness. Pelvic exam revealed a vertex presentation -3 station. Umbilical cord in front of the head. Results & Data Results & Data Vital Signs (Past 12 Hours) Vital Signs Temp Pulse Resp BP Pulse Ox O2 Del Method 08/14/25 07:25 36.8 C 68 16 116/78 94 Room Air 08/14/25 05:15 16 92 08/14/25 04:15 17 95 08/14/25 03:15 18 94 08/14/25 03:09 36.6 C 72 18 95/61 L 99 08/14/25 01:30 16 96 08/14/25 00:30 18 99
[2025-08-14] MEDS: IBUPROFEN 600 MG TAB PO SCH (13:40)
[2025-08-14] MEDS ORDERED: KETOROLAC 30 MG/ML VIAL IV PRN (14:00)
[2025-08-14 22:58] VITALS: RESP 18; O2SAT 98
[2025-08-15 06:27] LABS: Hematocrit (blood only) 25.8 % (37.0-47.0); Hemoglobin 8.7 g/dl (12.0-16.0)
[2025-08-15] MEDS: IRON SUCROSE 200 MG in SODIUM CHLORIDE 0.9% 100 ML IV ONE (08:00)
[2025-08-15 08:44] VITALS: BP 103/67; PULSE 64; TEMP 98.1
--- NOTE | 2025-08-15 08:45 | Obstetrical Progress Note ---
Date of Service August 15, 2025 Assessment & Plan Admission and Anticipated Discharge Date Admission Date: August 12, 2025 Subjective Patient is seen and examined. She feels well, no complaints. Pain is under control with oral meds. Ambulating without dizziness Voiding without difficulty Tolerating regular diet with out N&V Flatus + BM neg Bleeding is minimal No fever/ chills/ CP/ SOB/ N&V/ Leg pain Bottle feeding without problems Vital Signs Temp Pulse Pulse Resp BP Pulse Ox O2 Del Method 08/15/25 08:00 36.7 C 64 18 103/67 98 Room Air 08/14/25 22:58 36.8 C 74 18 111/74 98 Room Air 08/14/25 19:50 36.8 C 75 16 106/69 97 Room Air 08/14/25 15:45 37.2 C 79 16 100/58 L 97 Room Air 08/14/25 12:30 36.9 C 87 16 102/69 98 Room Air Lab Results 08/12/25 08/13/25 08/13/25 Range/Units 20:20 12:30 12:30 WBC 13.83 H (4.8-10.8) K/ul RBC 4.30 (4.20-5.40) M/uL Hgb 11.9 L (12.0-16.0) g/dl Hct 36.5 L (37.0-47.0) % MCV 84.9 (80.0-100.0) fL MCH 27.7 (25.0-34.0) pg MCHC 32.6 (32.0-36.0) g/dL RDW Std Deviation 41.6 (36.4-46.3) fL RDW Coeff of [place] 13.6 (11.5-14.5) % Plt Count 277 (130-400) K/uL MPV 10.0 (9.4-12.4) fL Immature Gran % (Auto) % Neut % (Auto) % Lymph % (Auto) % [place] % (Auto) % Eos % (Auto) % Baso % (Auto) % Neut # (Auto) (1.40-6.50) K/uL Lymph # (Auto) (1.20-3.40) K/uL [place] # (Auto) (0.11-0.59) K/uL Eos # (Auto) (0.00-0.50) K/uL Baso # (Auto) (0.00-0.20) K/uL Immature Gran # (Auto) (0.01-0.20) K/uL Cord ABG pH 7.20 (7.1-7.38) Cord ABG pCO2 56 (39.1-73.5) mmHg Cord ABG pO2 < 20 (4.1-31.7) mmHg Cord ABG HCO3 22 (19.7-28.5) mmol/L Cord ABG Base Excess -6.7 (-9-1.8) mEq/L Cord ABG O2 Sat < 60.0 (<60) % Cord VBG pH 7.28 (7.20-7.44) Cord VBG pCO2 45 (30.4-57.2) mmHg Cord VBG pO2 35 (14.1-43.3) mmHg Cord VBG HCO3 21 (18.4-26.8) mmol/L Cord VBG Base Excess -5.6 (-7.7-1.9) mEq/L Cord VBG O2 Sat 70.2 H (<68) % Blood Gas Comments INFANT A A Treponema pallidum Ab Negative (Negative) Blood Type B Positive Antibody Screen NEGATIVE 08/14/25 08/15/25 Range/Units 06:27 05:52 WBC 11.07 H (4.8-10.8) K/ul RBC 2.91 L (4.20-5.40) M/uL Hgb 8.4 L D 8.7 L (12.0-16.0) g/dl Hct 25.3 L 25.8 L (37.0-47.0) % MCV 86.9 (80.0-100.0) fL MCH 28.9 (25.0-34.0) pg MCHC 33.2 (32.0-36.0) g/dL RDW Std Deviation 43.4 (36.4-46.3) fL RDW Coeff of Guerita 13.7 (11.5-14.5) % Plt Count 231 (130-400) K/uL MPV 10.1 (9.4-12.4) fL Immature Gran % (Auto) 0.4 % Neut % (Auto) 74.3 % Lymph % (Auto) 19.1 % [place] % (Auto) 5.0 % Eos % (Auto) 0.8 % Baso % (Auto) 0.4 % Neut # (Auto) 8.24 H (1.40-6.50) K/uL Lymph # (Auto) 2.11 (1.20-3.40) K/uL [place] # (Auto) 0.55 (0.11-0.59) K/uL Eos # (Auto) 0.09 (0.00-0.50) K/uL Baso # (Auto) 0.04 (0.00-0.20) K/uL Immature Gran # (Auto) 0.04 (0.01-0.20) K/uL Cord ABG pH (7.1-7.38) Cord ABG pCO2 (39.1-73.5) mmHg Cord ABG pO2 (4.1-31.7) mmHg Cord ABG HCO3 (19.7-28.5) mmol/L Cord ABG Base Excess (-9-1.8) mEq/L Cord ABG O2 Sat (<60) % Cord VBG pH (7.20-7.44) Cord VBG pCO2 (30.4-57.2) mmHg Cord VBG pO2 (14.1-43.3) mmHg Cord VBG HCO3 (18.4-26.8) mmol/L Cord VBG Base Excess (-7.7-1.9) mEq/L Cord VBG O2 Sat (<68) % Blood Gas Comments Treponema pallidum Ab (Negative) Blood Type Antibody Screen PE: General: Alert, orientedx3, NAD CVS: S1S2 RRR Lungs; CTAB Abd: soft, NT, ND, BS+, fundus firm, below Umbilicus Incision: Clean, dry, intact Perineum intact, Lochia rubra minimal Ext; NT, no edema AP: 24 yo s/p Emergency C Section, pod# 2 VSS Afebrile doing well Anemic, asymptomatic, IV iron being given now Continue routine postop care Encourage ambulation, PO intake All questions were answered D/C home , f/u in office Results & Data Vital Signs (Past 12 Hours) Vital Signs Temp Pulse Resp BP Pulse Ox O2 Del Method 08/15/25 08:00 36.7 C 64 18 103/67 98 Room Air 08/14/25 22:58 36.8 C 74 18 111/74 98 Room Air
[2025-08-15] MEDS ORDERED: IBUPROFEN 600 MG TAB PO PRN (14:00)
[2025-08-15] MEDS ORDERED: ACETAMINOPHEN 325 MG TAB PO PRN (20:00)
[2025-08-15] MEDS ORDERED: ZOLPIDEM TARTRATE 5 MG TAB PO PRN (21:00)
== END 2025-08-15 11:00 | disposition home health service (06) | DRG 788 ==
LOC: 4S1 19:18 → 4E2 08-13 16:32